=== PATIENT | female | born 1950 | race Caucasian/White ===

== ENCOUNTER → 2022-07-07 | Outpatient (CLI) | payer OTHER ==
--- NOTE | 2022-07-07 17:37 | Diagnostic Imaging Report ---
INDICATION: R WRIST INJURY COMPARISON: None. FINDINGS: 3 views of the right wrist demonstrate no acute fracture or dislocation. There are no focal osseous lesions. 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 The visualized soft tissue structures are unremarkable. The pronator fat pad is not displaced. There are no radio opaque foreign bodies. IMPRESSION: 1. No acute fracture or dislocation in the right wrist. Dictated by: Dictated on workstation # [id number]
== END ==
LOC: RAD FS 13:08
PROVIDERS: ATTEND Nurse Practitioner Family
DX: S69.91XA Unspecified injury of right wrist, hand and finger(s), initial encounter (principal); X58.XXXA Exposure to other specified factors, initial encounter
CPT/HCPCS: 73110